=== PATIENT | female | born 1960 | race Caucasian/White ===

== ENCOUNTER 2022-07-08 16:17 | Emergency (ER) | payer OTHER ==
[~2022-07-08] VITALS: Ht 160 cm; Wt 68.2 kg
[~2022-07-08 16:17] MED LIST: AMOX-117 PO; HYDR-3965 PO
[2022-07-08 17:01] VITALS: BP 161/67
[2022-07-08] MEDS ORDERED: sulfamethoxazole/trimethoprim DS (800/160mg) tablet PO ONE (18:05)
[2022-07-08] MEDS ORDERED: SULF1TAB49 PO ×2 (18:12)
[2022-07-09] MEDS ORDERED: SULF1TAB49 PO (18:35)
== END 2022-07-08 18:25 | disposition home or self-care (01) ==
LOC: ER 16:17
DX: S40.812A Abrasion of left upper arm, initial encounter (principal); L03.114 Cellulitis of left upper limb; Z79.2 Long term (current) use of antibiotics; W55.01XA Bitten by cat, initial encounter; Y93.89 Activity, other specified; Y92.89 Other specified places as the place of occurrence of the external cause; Y99.8 Other external cause status
CPT/HCPCS: 99283